=== PATIENT | female | born 1980 | race Caucasian/White ===

== ENCOUNTER 2019-02-17 22:45 | Emergency (ER) | payer OTHER ==
[2019-02-17] MEDS ORDERED: DEXAMETHASONE 10 MG/ML VIAL PO STA (23:52)
[2019-02-17] MEDS ORDERED: CHERRY SYRUP 10 ML UDC PO ONE (23:52)
[2019-02-17] MEDS ORDERED: IPRATROPIUM/ALBUTEROL 3 ML NEB INH STA (23:52)
--- NOTE | 2019-02-17 23:55 | ED Physician Documentation ---
PD HPI DYSPNEA - Stated complaint Stated Complaint: SOA - Chief complaint Chief Complaint: Resp - History obtained from History obtained from: Patient - History of Present Illness Timing - onset: How many days ago (4) Timing - onset during: Rest Timing - duration: Days (4) Timing - details: Gradual onset, Still present Inciting event(s): URI, Other (pollen season with asthma) Worsened by: Exertion, Coughing Associated symptoms: Cough, Wheezing Similar symptoms before: Diagnosis (asthma) Recently seen: Not recently seen - Additional information Additional information: 38-year-old female with a history of allergic asthma has developed cough and congestion with increasing dyspnea she has had to use her inhaler a number of times and this is about the same time of year she had to have a prednisone taper last year. She is coughing up some phlegm she does not know the color and she has not had a fever. She does not feel sick. She has had some vertigo ep isodically. She denies any ear pain. Review of Systems Constitutional: denies: Fever Eyes: denies: Decreased vision Ears: reports: Other (Vertigo). denies: Ear pain Nose: reports: Rhinorrhea / runny nose, Congestion Throat: denies: Sore throat Cardiac: denies: Chest pain / pressure, Palpitations Respiratory: reports: Dyspnea, Cough, Wheezing GI: denies: Nausea, Vomiting : denies: Dysuria Skin: denies: Rash Musculoskeletal: denies: Neck pain, Back pain, Extremity pain Neurologic: denies: Generalized weakness, Focal weakness, Numbness PD PAST MEDICAL HISTORY - Past Medical History Respiratory: Asthma - Past Surgical History Past Surgical History: Yes General: Appendectomy - Present Medications Home Medications: Ambulatory Orders Medication Instructions Recorded Confirmed Fluticasone Propionate [Flovent 50 mcg IH DAILY PRN 11/17/14 11/17/14 Diskus] Montelukast Sodium [Singulair] 10 mg PO DAILY 11/17/14 11/17/14 Ondansetron Odt [Zofran] 4 mg TL Q6H PRN #10 tablet 11/17/14 diazePAM [Valium] 5 mg PO TID PRN #15 tablet 11/17/14 Albuterol 2.5 mg INH Q4H PRN #30 neb 02/17/19 Albuterol Sulf [Ventolin Hfa 1 - 2 puffs INH Q4HR PRN #1 inhaler 02/17/19 Inhaler] Azithromycin [Zithromax] 250 mg PO DAILY #6 tablet 02/17/19 predniSONE [Deltasone] 10 mg PO ONCE #26 tablet 02/17/19 - Allergies Allergies/Adverse Reactions: Allergies Allergy/AdvReac Type Severity Reaction Status Date / Time No Known Drug Allergies Allergy Verified 02/17/19 22:54 - Social History Does the pt smoke?: No Smoking Status: Never smoker Does the pt drink ETOH?: No Does the pt have substance abuse?: No - Immunizations Immunizations are current?: Yes - POLST Patient has POLST: No PD ED PE NORMAL - Vitals Vital signs reviewed: Yes (Tacky and hypertensive) - General General: Alert and oriented X 3, No acute distress, Well developed/nourished - HEENT HEENT: Atraumatic, PERRL, EOMI, Other (The right TM is occluded by cerumen the left is minimally inflamed with rounding of the landmarks) - Neck Neck: Supple, no meningeal sign, No bony TTP - Cardiac Cardiac: RRR, No murmur - Respiratory Respiratory: No respiratory distress, Other (Diminished breath sounds with scattered wheezes bilaterally) - Abdomen Abdomen: Soft, Non tender - Back Back: No CVA TTP, No spinal TTP - Derm Derm: Normal color, Warm and dry, No rash - Extremities Extremities: No deformity, No edema - Neuro Neuro: Alert and oriented X 3, dietitian assistant 2-12 intact, No motor deficit, No sensory deficit, Normal speech Eye Opening: Spontaneous Motor: Obeys Commands Verbal: Oriented GCS Score: 15 Results - Vitals Vitals: Vital Signs - 24 hr 02/17/19 22:51 Temperature 36.3 C L Heart Rate 103 H Respiratory 20 Rate Blood Pressure 144/86 H O2 Saturation 96 Oxygen O2 Source Room air PD MEDICAL DECISION MAKING - ED course Complexity details: reviewed old records, re-evaluated patient, considered differential, d/w patient ED course: 38-year-old female with allergic asthma is administered dexamethasone 10 mg orally and given a DuoNeb treatment. Will place her on a course of prednisone and azithro. Departure - Departure Disposition: 01 Home, Self Care Clinical Impression: Allergic asthma Qualifiers: Asthma severity: mild Asthma persistence: intermittent Asthma complication type: with acute exacerbation Qualified Code(s): J45.21 - Mild intermittent asthma with (acute) exacerbation Otitis media Qualifiers: Otitis media type: suppurative Chronicity: acute Laterality: left Recurrence: non-recurrent Spontaneous tympanic membrane rupture: without spontaneous rupture Qualified Code(s): H66.002 - Acute suppurative otitis media without spontaneous rupture of ear drum, left ear Condition: Stable Instructions: ED Otitis Media Acute Adult, ED Bronchitis Asthmatic Follow-Up: EUSEBIO HENDRICKS PA-C [Primary Care Provider] - Prescriptions: Albuterol Sulf [Ventolin Hfa Inhaler] 1 - 2 puffs INH Q4HR PRN #1 inhaler PRN Reason: Shortness Of Air/Wheezing Albuterol 2.5 mg INH Q4H PRN #30 neb PRN Reason: Wheezing Azithromycin [Zithromax] 250 mg PO DAILY #6 tablet predniSONE [Deltasone] 10 mg PO ONCE #26 tablet
[2019-02-18 00:34] VITALS: BP 107/69
== END 2019-02-18 00:36 | disposition home or self-care (01) ==
LOC: ED 22:45
DX: J45.21 Mild intermittent asthma with (acute) exacerbation (principal); H66.002 Acute suppurative otitis media without spontaneous rupture of ear drum, left ear
CPT/HCPCS: 94640; 99283; A9270

== ENCOUNTER 2019-12-26 13:49 | Emergency (ER) | payer OTHER ==
[2019-12-26 13:53] VITALS: BP 129/92
--- NOTE | 2019-12-26 14:10 | ED Physician Documentation ---
PD HPI HEENT - Stated complaint Stated Complaint: RT EAR HEARING LOSS - Chief complaint Chief Complaint: Heent - History obtained from History obtained from: Patient (She cannot hear from the right ear starting today. No pain. No URI symptoms. It got worse after using a Q-tip.) Review of Systems Constitutional: denies: Fever, Chills Ears: reports: Loss of hearing. denies: Ear pain, Drainage/discharge Nose: denies: Rhinorrhea / runny nose, Congestion PD PAST MEDICAL HISTORY - Past Medical History Respiratory: Asthma - Past Surgical History Past Surgical History: Yes General: Appendectomy - Present Medications Home Medications: Ambulatory Orders Medication Instructions Recorded Confirmed Fluticasone Propionate [Flovent 50 mcg IH DAILY PRN 11/17/14 11/17/14 Diskus] Montelukast Sodium [Singulair] 10 mg PO DAILY 11/17/14 11/17/14 Ondansetron Odt [Zofran] 4 mg TL Q6H PRN #10 tablet 11/17/14 diazePAM [Valium] 5 mg PO TID PRN #15 tablet 11/17/14 Albuterol 2.5 mg INH Q4H PRN #30 neb 02/17/19 Albuterol Sulf [Ventolin Hfa 1 - 2 puffs INH Q4HR PRN #1 inhaler 02/17/19 Inhaler] Azithromycin [Zithromax] 250 mg PO DAILY #6 tablet 02/17/19 predniSONE [Deltasone] 10 mg PO ONCE #26 tablet 02/17/19 - Allergies Allergies/Adverse Reactions: Allergies Allergy/AdvReac Type Severity Reaction Status Date / Time No Known Drug Allergies Allergy Verified 12/26/19 13:53 - Social History Does the pt smoke?: No Smoking Status: Never smoker Does the pt drink ETOH?: No Does the pt have substance abuse?: No - Immunizations Immunizations are current?: Yes - POLST Patient has POLST: No PD ED PE NORMAL - Vitals Vital signs reviewed: Yes - General General: Alert and oriented X 3, No acute distress - HEENT HEENT: Other (Impacted cerumen in the right ear, subsequent to syringe irrigation her hearing was normal and TM was normal.) - Neck Neck: Supple, no meningeal sign, No bony TTP - Neuro Neuro: Alert and oriented X 3, Normal speech Results - Vitals Vitals: Vital Signs - 24 hr 12/26/19 13:51 Temperature 37.2 C Heart Rate 104 H Respiratory 17 Rate Blood Pressure 129/92 H O2 Saturation 97 Oxygen O2 Source Room air Procedures - General procedure General procedure: Right ear was irrigated with warm water with disimpaction of the cerumen. Departure - Departure Disposition: 01 Home, Self Care Clinical Impression: Impacted cerumen of right ear Condition: Good Record reviewed to determine appropriate education?: Yes Instructions: ED Earwax Removal
== END 2019-12-26 14:21 | disposition home or self-care (01) ==
LOC: ED 13:49
DX: H61.21 Impacted cerumen, right ear (principal)
CPT/HCPCS: 69209; 99281; 99283

== ENCOUNTER 2021-08-17 19:35 | Emergency (ER) | payer OTHER ==
[2021-08-17 19:42] VITALS: BP 133/116
--- NOTE | 2021-08-17 20:08 | ED Physician Documentation ---
PD HPI URI - Stated complaint Stated Complaint: COUGH,LIGHTHEADED,FATIGUE - Chief complaint Chief Complaint: Resp - History obtained from History obtained from: Patient, Family - History of Present Illness Timing - onset: How many days ago (2) Timing duration: Days (2) Timing details: Gradual onset Pain level max: 0 Pain level now: 0 Associated symptoms: Nasal congestion, Rhinorrhea, Sore throat, Dry cough. No: Fever Contributing factors: COPD / asthma Improves by: Rest - Additional information Additional information: Patient is a 40-year-old female, fully vaccinated against Covid who presents with runny nose, cough congestion and mild difficulty breathing. History of asthma but does not currently have any inhalers. Worse with exertion, better with rest. Children are sick with same. Review of Systems Constitutional: denies: Fever Nose: reports: Rhinorrhea / runny nose, Congestion : denies: Now EGA Skin: denies: Rash PD PAST MEDICAL HISTORY - Past Medical History Past Medical History: Yes Respiratory: Asthma - Past Surgical History Past Surgical History: Yes General: Appendectomy - Present Medications Home Medications: Ambulatory Orders Medication Instructions Recorded Confirmed Fluticasone Propionate [Flovent 50 mcg IH DAILY PRN 11/17/14 11/17/14 Diskus] Montelukast Sodium [Singulair] 10 mg PO DAILY 11/17/14 11/17/14 Ondansetron Odt [Zofran] 4 mg TL Q6H PRN #10 tablet 11/17/14 diazePAM [Valium] 5 mg PO TID PRN #15 tablet 11/17/14 Albuterol 2.5 mg INH Q4H PRN #30 neb 02/17/19 Albuterol Sulf [Ventolin Hfa 1 - 2 puffs INH Q4HR PRN #1 inhaler 02/17/19 Inhaler] Azithromycin [Zithromax] 250 mg PO DAILY #6 tablet 02/17/19 predniSONE [Deltasone] 10 mg PO ONCE #26 tablet 02/17/19 Albuterol Sulf [Ventolin Hfa 1 - 2 puffs INH Q4HR PRN #1 inhaler 08/17/21 Inhaler] Benzonatate [Tessalon] 200 mg PO TID PRN #30 cap 08/17/21 - Allergies Allergies/Adverse Reactions: Allergies Allergy/AdvReac Type Severity Reaction Status Date / Time No Known Drug Allergies Allergy Verified 08/17/21 19:42 - Social History Does the pt smoke?: No Smoking Status: Never smoker Does the pt drink ETOH?: No Does the pt have substance abuse?: No - Immunizations Immunizations are current?: Yes - POLST Patient has POLST: No PD ED PE NORMAL - Vitals Vital signs reviewed: Yes - General General: Alert and oriented X 3, No acute distress, Well developed/nourished - HEENT HEENT: PERRL, Moist mucous membranes - Neck Neck: Supple, no meningeal sign - Cardiac Cardiac: RRR, Strong equal pulses - Respiratory Respiratory: No respiratory distress, Other (Mild wheeze bilaterally. No respiratory distress) - Abdomen Abdomen: Soft, Non tender, Non distended - Derm Derm: Warm and dry - Neuro Neuro: Alert and oriented X 3 - Psych Psych: Normal mood, Normal affect Results - Vitals Vitals: Vital Signs - 24 hr 08/17/21 19:40 Temperature 36.9 C Heart Rate 100 Respiratory 20 Rate Blood Pressure 133/116 H O2 Saturation 93 Oxygen O2 Source Room air PD MEDICAL DECISION MAKING - ED course Complexity details: considered differential, d/w patient ED course: Patient is well-appearing, nontoxic. Afebrile. No hypoxia or respiratory distress. Will prescribe an inhaler for home. Covid swab performed. Likely viral syndrome. Children are sick with same. Patient counseled regarding signs and symptoms for which I believe and urgent re-evaluation would be necessary. Patient with good understanding of and agreement to plan and is comfortable going home at this time This document was made in part using voice recognition software. While efforts are made to proofread this document, sound alike and grammatical errors may occur. Departure - Departure Disposition: 01 Home, Self Care Clinical Impression: Viral URI Condition: Good Instructions: ED Viral Syndrome Follow-Up: your,doctor in 1 week if not better [Other] Prescriptions: Albuterol Sulf [Ventolin Hfa Inhaler] 1 - 2 puffs INH Q4HR PRN #1 inhaler PRN Reason: Shortness Of Air/Wheezing Benzonatate [Tessalon] 200 mg PO TID PRN #30 cap PRN Reason: Cough Comments: Drink plenty of fluids and rest. Return if you worsen. You have a Covid test pending. You need to self quarantine until the result is done and negative. The results should be done in 24-48 hours. We will call with a positive result, the fastest way to get a negative result for confirmation though is to go to the hospital website at [email or web address], click on the my [facility] tab and sign up for the patient portal. If any of your friends and/or family need to be tested, they can call the hospital at [phone] for an appointment to have their Covid test. Your prescriptions were sent to [facility] in [place]. Discharge Date/Time: 08/17/21 20:13
== END 2021-08-17 20:13 | disposition home or self-care (01) ==
LOC: ED 19:35
DX: J06.9 Acute upper respiratory infection, unspecified (principal); Z20.822 Contact with and (suspected) exposure to COVID-19
CPT/HCPCS: 99283; 99284

== ENCOUNTER 2024-04-22 12:26 | Emergency (ER) | payer OTHER ==
[2024-04-22 12:40] VITALS: BP 126/77; O2SAT 99
--- NOTE | 2024-04-22 12:45 | ED Physician Documentation ---
PD HPI HEENT - Stated complaint Stated Complaint: EYE IRRITATION - Chief complaint Chief Complaint: Heent - History obtained from History obtained from: Patient - Additional information Additional information: Since yesterday she has had inflammation of both eyes. Also some URI symptoms. 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 No fevers. No vision loss. Does not wear contacts. PD PAST MEDICAL HISTORY - Past Medical History Past Medical History: Yes Respiratory: Asthma - Past Surgical History Past Surgical History: Yes General: Appendectomy - Present Medications Home Medications: Ambulatory Orders Medication Instructions Recorded Confirmed Fluticasone Propionate [Flovent 50 mcg IH DAILY PRN 11/17/14 11/17/14 Diskus] Montelukast Sodium [Singulair] 10 mg PO DAILY 11/17/14 11/17/14 Ondansetron Odt [Zofran] 4 mg TL Q6H PRN #10 tablet 11/17/14 diazePAM [Valium] 5 mg PO TID PRN #15 tablet 11/17/14 Albuterol 2.5 mg INH Q4H PRN #30 neb 02/17/19 Albuterol Sulf [Ventolin Hfa 1 - 2 puffs INH Q4HR PRN #1 inhaler 02/17/19 Inhaler] Azithromycin [Zithromax] 250 mg PO DAILY #6 tablet 02/17/19 predniSONE [Deltasone] 10 mg PO ONCE #26 tablet 02/17/19 Albuterol Sulf [Ventolin Hfa 1 - 2 puffs INH Q4HR PRN #1 inhaler 08/17/21 Inhaler] Benzonatate [Tessalon] 200 mg PO TID PRN #30 cap 08/17/21 Erythromycin Base [Erythromycin 1 appful OP 5XD 7 Days #1 gm 04/22/24 Ophthalmic Ointment] - Allergies Allergies/Adverse Reactions: Allergies Allergy/AdvReac Type Severity Reaction Status Date / Time No Known Drug Allergies Allergy Verified 04/22/24 12:39 - Social History Does the pt smoke?: No Smoking Status: Never smoker Does the pt drink ETOH?: No Does the pt have substance abuse?: No - Immunizations Immunizations are current?: Yes - POLST Patient has POLST: No PD ED PE NORMAL - Vitals Vital signs reviewed: Yes - General General: Alert and oriented X 3, No acute distress - HEENT HEENT: PERRL, EOMI, Other (Mild purulent conjunctivitis of both eyes) - Neuro Neuro: Alert and oriented X 3 Results - Vitals Vitals: Vital Signs - 24 hr 04/22/24 12:36 Temperature 36.3 C L Heart Rate 90 Respiratory 16 Rate Blood Pressure 126/77 O2 Saturation 99 Oxygen O2 Source Room air Departure - Departure Disposition: Home, Self Care Clinical Impression: Conjunctivitis Qualifiers: Conjunctivitis type: acute Acute conjunctivitis type: unspecified Laterality: bilateral Qualified Code(s): H10.33 - Unspecified acute conjunctivitis, bilateral Condition: Good Record reviewed to determine appropriate education?: Yes Instructions: ED Conjunctivitis Nonspecific Follow-Up: Adrien Macario MD [Provider Admit Priv/Credential] - Prescriptions: Erythromycin Base [Erythromycin Ophthalmic Ointment] 1 appful OP 5XD 7 Days #1 gm Comments: You should be better by midweek. Reasonable to follow-up with the marriage and family counselor if not better in that time frame., The numbers on this form.
[2024-04-22] MEDS: ERYTHROMYCIN OPHTH OINT 1 GM TUBE EACHEYE STA (12:49)
== END 2024-04-22 13:04 | disposition home or self-care (01) ==
LOC: ED 12:26
DX: H10.33 Unspecified acute conjunctivitis, bilateral (principal)
CPT/HCPCS: 99283; J3490